=== PATIENT | male | born 1980 | race Asian ===

== ENCOUNTER 2017-05-19 12:22 | Emergency (ER) | payer OTHER ==
[2017-05-19 12:48] VITALS: BP 95/68
[2017-05-19] MEDS ORDERED: Ondansetron ODT TAB* 4 MG PO ONE (13:21)
--- NOTE | 2017-05-19 13:29 | UC ---
Abdominal Pain Male HPI - HPI Summary HPI Summary: 37 yo male with the onset of n/vx2-3/d x 5 no f/c has WHITE and myalgias no cough no cp or sob slight dizziness NO ABD PAIN no UTI symptoms - History of Current Complaint Chief Complaint: UCGeneralIllness Stated Complaint: URI Time Seen by Provider: 05/19/17 13:10 Hx Obtained From: Patient Onset/Duration: Gradual Onset, Lasting Hours Timing: Constant Severity Initially: Moderate Severity Currently: Mild Pain Intensity: 0 Pain Scale Used: 0-10 Numeric Aggravating Factor(s): Food Associated Signs And Symptoms: Positive: Dizzy, Nausea, Vomiting, Diarrhea - Allergies/Home Medications Allergies/Adverse Reactions: Allergies Allergy/AdvReac Type Severity Reaction Status Date / Time No Known Allergies Allergy Verified 05/19/17 12:48 Home Medications: Home Medications Ibuprofen [Advil] 200 mg PO Q6H PRN 05/19/17 [History Confirmed 05/19/17] PMH/Surg Hx/FS Hx/Imm Hx Previously Healthy: Yes - Surgical History Surgical History: None - Family History Known Family History: Negative: Cardiac Disease, Hypertension, Diabetes - Social History Alcohol Use: None Substance Use Type: None Smoking Status (MU): Never Smoked Tobacco Review of Systems Constitutional: Negative Skin: Negative Eyes: Negative ENT: Negative Respiratory: Negative Cardiovascular: Negative Gastrointestinal: Vomiting, Diarrhea, Nausea Genitourinary: Negative Motor: Negative Neurovascular: Negative Musculoskeletal: Myalgia Neurological: Negative Psychological: Negative Is Patient Immunocompromised?: No All Other Systems Reviewed And Are Negative: Yes Physical Exam Triage Information Reviewed: Yes Appearance: Well-Appearing, No Pain Distress, Well-Nourished Vital Signs: Initial Vital Signs Temp 98.3 F 05/19/17 12:45 Pulse 106 05/19/17 12:45 Resp 18 05/19/17 12:45 BP 95/68 05/19/17 12:45 Pulse Ox 100 05/19/17 12:45 Eyes: Positive: Conjunctiva Clear ENT: Positive: Hearing grossly normal, Uvula midline. Negative: Nasal congestion, Nasal drainage, TMs normal, Tonsillar swelling, Tonsillar exudate, Trismus, Muffled voice, Hoarse voice, Dental tenderness, Sinus tenderness Dental Exam: Normal Neck: Positive: Supple, Nontender, No Lymphadenopathy Respiratory: Positive: Lungs clear, Normal breath sounds, No respiratory distress, No accessory muscle use Cardiovascular: Positive: RRR, No Murmur, Tachycardia Abdomen Description: Positive: Nontender, No Organomegaly, Soft. Negative: CVA Tenderness (R), CVA Tenderness (L) Bowel Sounds: Positive: Present Musculoskeletal: Positive: ROM Intact, No Edema Neurological: Positive: Alert Psychological Exam: Normal Skin Exam: Normal Abd Pain Male Course/Dx - Course Course Of Treatment: old records review. pt tachy his prior visit - Differential Dx/Clinical Impression Provider Diagnoses: acute gastroenteritis Discharge - Discharge Plan Condition: Stable Disposition: HOME Prescriptions: Ondansetron TAB* [Zofran Tab*] 4 mg PO Q6H PRN #10 tab PRN Reason: Nausea Patient Education Materials: Gastroenteritis (ED) Forms: *Work Release Referrals: Alexey Gates MD [Primary Care Provider] - 1 Day Additional Instructions: recheck for worsening symptms recheck in 1 day if not better
== END 2017-05-19 13:30 | disposition home or self-care (01) ==
LOC: UCEAST 12:22
DX: K52.9 Noninfective gastroenteritis and colitis, unspecified (principal)
CPT/HCPCS: 99212; A9270-GY; G0463

== ENCOUNTER 2017-09-06 18:30 | Emergency (ER) | payer OTHER ==
[2017-09-06 18:57] VITALS: BP 123/83
--- NOTE | 2017-09-06 20:06 | UC ---
Respiratory Complaint HPI - HPI Summary HPI Summary: 37 yo male c/o sore throat, bodyaches and chills x 2 days but started with URI sx of congestion and sore throat 4 days ago, son at home sick with strep but cough is now productive with green yellow sputum - History of Current Complaint Chief Complaint: UCRespiratory Stated Complaint: THROAT PAIN Time Seen by Provider: 09/06/17 19:42 Hx Obtained From: Patient Onset/Duration: Lasting Days Severity Initially: Moderate Pain Intensity: 4 Character: Cough: Productive - Allergies/Home Medications Allergies/Adverse Reactions: Allergies Allergy/AdvReac Type Severity Reaction Status Date / Time No Known Allergies Allergy Verified 09/06/17 18:57 PMH/Surg Hx/FS Hx/Imm Hx - Surgical History Surgical History: None - Family History Known Family History: Negative: Cardiac Disease, Hypertension, Diabetes - Social History Alcohol Use: None Substance Use Type: None Smoking Status (MU): Never Smoked Tobacco Review of Systems Constitutional: Chills Skin: Negative Eyes: Negative ENT: Sore Throat, Sinus Congestion Respiratory: Cough Cardiovascular: Negative Gastrointestinal: Negative Genitourinary: Negative Motor: Negative Neurovascular: Negative Musculoskeletal: Myalgia Neurological: Negative Psychological: Negative All Other Systems Reviewed And Are Negative: Yes Physical Exam Triage Information Reviewed: Yes Vital Signs: Initial Vital Signs Temp 36.6 C 09/06/17 18:52 Pulse 108 09/06/17 18:52 Resp 16 09/06/17 18:52 BP 123/83 09/06/17 18:52 Pulse Ox 99 09/06/17 18:52 Eye Exam: Normal ENT Exam: Normal Dental Exam: Normal Neck exam: Normal Neck: Positive: 1 Respiratory Exam: Normal Respiratory: Positive: Rhonchi, Other: - coarse BS B/L Cardiovascular Exam: Normal Abdominal Exam: Normal Musculoskeletal: Positive: Other: - diffuse tender joints and muscles Neurological Exam: Normal Psychological Exam: Normal Skin Exam: Normal UC Diagnostic Evaluation - Laboratory O2 Sat by Pulse Oximetry: 99 Respiratory Course/Dx - Differential Dx/Diagnosis Provider Diagnoses: bronchitis. influenza like illness. viral syndrome Discharge - Discharge Plan Condition: Stable Disposition: HOME Prescriptions: Azithromyxin MARIAM (NF) [Z-Mariam (Zithromax) 250 mg tabs #6] 2 tab PO .TODAY, THEN 1 DAILY #6 tab Oseltamivir CAP* [Tamiflu CAP*] 75 mg PO BID 5 Days #10 cap Patient Education Materials: Acute Bronchitis (ED), Viral Syndrome (ED) Referrals: Alexey Gates MD [Primary Care Provider] - Additional Instructions: take medication as directed
[2017-09-06] MEDS ORDERED: Azithromycin TAB* 250 MG PO ONE (21:01)
[2017-09-06] MEDS ORDERED: Oseltamivir CAP* 75 MG CAP PO ONE (21:02)
== END 2017-09-06 21:25 | disposition home or self-care (01) ==
LOC: UCEAST 18:30
DX: J40 Bronchitis, not specified as acute or chronic (principal); B34.9 Viral infection, unspecified; J02.9 Acute pharyngitis, unspecified; R52 Pain, unspecified
CPT/HCPCS: 87502; 87651; 99212; A9270-GY; G0463